=== PATIENT | female | born 1970 | race Caucasian/White ===

== ENCOUNTER → 2016-06-21 | Outpatient (CLI) | payer OTHER ==
[~2016-06-21] MED LIST: ACETAMINOPHEN650 M1 PO; ALBUTEROL17 GM INH; ALESSE-281 TAB PO; ATENOLOL PO; B-121000 MC1 PO; CLARITIN10 M3 DOB; DOXYCYCLINE HY100 M1 PO; DULERA 100 MCG/13 GM INH; ESGIC CAPSULE1 CAP PO; FIORICET 50-321 EACH PO; MONTELUKAST SOD10 MG PO; MUCINEX DM1 TAB.SR . PO; PHENERGAN PO; PHENERGAN W/CO120 ML PO; PROTONIX PO; RANITIDINE HCL150 M1 PO; RELPAX40 MG PO; SEROQUEL PO; SERTRALINE HCL50 MG PO; TOPAMAX25 MG PO; TYLOX 5/500 CAP1 CAP PO; VITAMIN D350000 UNIT PO; ZITHROMAX PO
--- NOTE | ~2016-06-21 | CT4 ---
[facility] A Service of [facility] RADIOLOGY TEXT RESULTS PATIENT: ELIAS GUTIERREZ [facility] 66 UNIT #: [id number] AGE: [address]: LUDIVINA Villatoro APRN SEX: F ORDER DR: [id number] [place], [place] [address] [id number] MR#: [id number] Acc #: [id number] NAME: ELIAS GUTIERREZ : 1970 SEX: F STUDY DATE/TIME: 06/21/2016 10:00 UNIT: [facility] ROOM: STUDY DESCRIPTION: CT Abd and Pelv Wo Cont Attending Physician: Ludivina Grayson Aprn Referring Physician: Ludivina Grayson Aprn Ordering Physician: Ludivina Grayson Aprn Primary Care Physician: Ludivina Grayson Aprn MEDICAL IMAGING REPORT This report is preliminary unless electronic signature is present EXAM CT abdomen and pelvis INDICATION Dysuria. Microscopic hematuria. Frequent urination at night. Nausea. Epigastric abdominal pain. TECHNIQUE CT abdomen and pelvis without contrast. Coronal and sagittal reconstructions were obtained. This CT exam was performed with one or more of the following radiation dose reduction techniques: automatic exposure control, adjustment of mA and/or kV according to patient size, and iterative reconstruction. COMPARISON None available. FINDINGS ABDOMEN: No urinary calculi are identified. No hydronephrosis. There is background hepatic steatosis. Gallbladder is not distended. The pancreas, spleen and adrenal glands are within normal limits. The bowel is not dilated. The abdominal aorta is normal in caliber. PELVIS: There is an IUD in the uterus. Ovaries are unremarkable. Bladder is decompressed. No enlarged pelvic or inguinal lymph nodes. IMPRESSION [facility] A Service of [facility] RADIOLOGY TEXT RESULTS PATIENT: ELIAS GUTIERREZ LOCATION: [facility] : 66 UNIT #: [id number] AGE: [address]: Ludwig-STACEY, LUDIVINA C., RESIDENTIAL SUPERVISOR SEX: F ORDER DR: 1. No urinary calculi. No hydronephrosis. 2. Hepatic steatosis. Dictated by... Kenny Jarvis M.D. THIS IS AN ELECTRONICALLY VERIFIED REPORT Kenny Jarvis M.D. at 06/21/2016 3:12 PM Jose G TD: 06/21/2016 10:49 JOB #: [id number] MEDICAL IMAGING REPORT Page 1 of 1 COPY
== END | disposition home or self-care (01) ==
LOC: CCAT 09:27
DX: R30.0 Dysuria (principal); K76.0 Fatty (change of) liver, not elsewhere classified
CPT/HCPCS: 74176

== ENCOUNTER 2016-09-19 12:28 | Observation (INO) | payer OTHER ==
--- NOTE | ~2016-09-19 | US84 ---
[id number] [facility] [address]. [place], [place] [address] [id number] MR#: [id number] Acc #: [id number] NAME: ELIAS GUTIERREZ : 1970 SEX: F STUDY DATE/TIME: 09/19/2016 16:38 UNIT: C3A PCU ROOM: 302 STUDY DESCRIPTION: US LE Veins Complete Taj Stdy Attending Physician: Cady Malhotra M.D. Ordering Physician: Cady Malhotra M.D. Primary Care Physician: Sanam Mathew Aprn MEDICAL IMAGING REPORT This report is preliminary unless electronic signature is present EXAM Lower extremity ultrasound for DVT bilateral, 09/19/2016 INDICATIONS Lower extremity pain for a week. TECHNIQUE Chan-scale, color Doppler and spectral analysis of both lower extremities was performed. COMPARISON STUDIES No comparisons. FINDINGS There is no evidence of DVT in either lower extremity. IMPRESSION 1. Negative study. No DVT in either lower extremity. Dictated by... Johnie Alejandro M.D. THIS IS AN ELECTRONICALLY VERIFIED REPORT Johnie Alejandro M.D. at 09/19/2016 11:38 PM CLARISA/ulysses TD: 09/19/2016 20:48 JOB #: [id number] MEDICAL IMAGING REPORT Page 1 of 1 COPY
--- NOTE | ~2016-09-19 | HP ---
Unit #: [id number] #: [id number] Patient: ELIAS GUTIERREZ [id number] [place], [place] [address] [id number] I MR#: [id number] NAME: ELIAS GUTIERREZ ROOM: 302 Age: 46 Sex: F Admission Date: 09/19/2016 : 1970 Attending Physician: Cady Malhotra M.D. Primary Care Physician: Sanam Mathew Aprn HISTORY AND PHYSICAL CHIEF COMPLAINT Chest pain. HISTORY OF PRESENT ILLNESS The patient is a 46-year-old female with past medical history of migraine headaches, depression, who presented to [facility] for evaluation of the above. The patient states that she was in her usual state of health until yesterday afternoon when she was driving. She states that she experienced the sudden onset of chest pain. She states that it was in the mid chest. It radiated to her arm. She described it as "heavy." There were no exacerbating or alleviating factors. She denies any similar pain. She denied diaphoresis. She also started having diarrhea yesterday. She reports more than 10 bouts of nonbloody diarrhea within the past 24 hours. She has an occasional cough. She denies any fever. She also reports a two-week history of intermittent leg cramps. In the emergency department at [facility] initial respiratory rate was 22, blood pressure 157/99, oxygen saturation was 100% on room air. D-dimer was elevated. A CT of the chest PE protocol was done and showed left lower lobe pulmonary embolism. She was started on heparin drip and sent to [facility] for admission. PAST MEDICAL HISTORY 1. The patient denies any hospitalizations. 2. Depression. 3. Migraine headache. PAST SURGICAL HISTORY 1. Skin excision of scalp lesion. The patient thinks it was benign. 2. Appendectomy. SOCIAL HISTORY The patient lives with her . There is no tobacco, alcohol or illicit drug use. She is disabled due to migraine headaches and depression. FAMILY HISTORY There is no family history of blood clots. ALLERGIES Unit #: [id number] #: [id number] Patient: ELIAS GUTIERREZ No known allergies. HOME MEDICATIONS Compazine 10 mg t.i.d. p.r.n. REVIEW OF SYSTEMS A complete review of systems is negative except as indicated in the HPI. The patient states that she is somewhat sedentary. She denies any recent travel. She did have two miscarriages. She has an IUD for control. DIAGNOSTIC STUDIES CARDIOVASCULAR: EKG shows normal sinus rhythm with a rate of 75 beats per minute. IMAGING: Chest x-ray shows nothing acute. CT of the chest PE protocol shows left lower lobe pulmonary embolism. LABORATORY: Complete blood count is completely normal. Comprehensive metabolic panel notable for a glucose of 133, total protein is 8.2, AST and ALT are 37 and 45 respectively. D-dimer 275, INR is 1.03. I was told that initial cardiac enzymes were negative but I am not seeing that in the accompanying records. PHYSICAL EXAMINATION VITAL SIGNS: Temperature is 98.4. Pulse 76. Respirations 22. Blood pressure 157/90. Oxygen saturation 100% on room air. GENERAL: The patient is a female who is awake and alert, in no acute distress. HEENT: The head is atraumatic. Mucous membranes are moist. NECK: Neck is supple. Trachea is midline. CARDIOVASCULAR: Regular rate and rhythm. LUNGS: Lungs are clear to auscultation bilaterally with no increased work of breathing. ABDOMEN: Abdomen is soft, nontender, with bowel sounds present in all four quadrants. EXTREMITIES: Nontender with no pedal edema. NEUROLOGIC: The patient is awake and alert. She follows commands. PSYCHIATRIC: Mood and affect are normal. The patient is cooperative. SKIN: Skin of examined areas is warm and dry. ASSESSMENT The patient is a 46-year-old female with: 1. Pulmonary embolism. The patient was started on heparin drip. She does have risk factor of obesity. 2. Diarrhea that started yesterday. 3. Leg pain. 4. History of migraine headaches. 5. Depression. 6. Obesity. PLAN 1. Admit to intermediate level. 2. Healthy heart diet. 3. Heparin drip, high intensity per protocol. 4. Bilateral lower extremity venous Dopplers. 5. Consult Dr. Green regarding PE. 6. Serial cardiac enzymes. Unit #: [id number] #: [id number] Patient: ELIAS GUTIERREZ 7. Fasting lipid panel. 8. Repeat labs in the morning. 9. Additional workup and consultants based on above. AW/am JOB #: [id number] Dictated by Jayesh Schumacher TD: 09/19/2016 15:32 JOB #: [id number] HISTORY AND PHYSICAL Page 1 of 1 X Cady Malhotra MD HISTORY AND PHYSICAL
--- NOTE | ~2016-09-19 | CO ---
Unit #: [id number] #: [id number] Patient: SUNSHINE DUCKWORTH [id number] [facility]. [place], [place] [address] [id number] I MR#: [id number] NAME: SUNSHINE DUCKWORTH ROOM: 302 Age: 46 Sex: F Admission Date: 09/19/2016 : 1970 Attending Physician: Julee Bah M.D. Primary Care Physician: Sanam Mathew, Faina Consultation Date: 09/20/2016 CONSULTATION REPORT REASON FOR CONSULTATION Acute pulmonary embolism, please evaluate. HISTORY OF PRESENT ILLNESS Ms. Sunshine Duckworth is a 46-year-old with history of recurrent migraine headaches and depression, who presented to the emergency room at [facility] with watery diarrhea along with chest pain. She had a CT angio of the chest, which was thought to show acute pulmonary embolism and she has been transferred for further evaluation. Ms. Duckworth tells me she has had no prior history of having blood clots with no recent long distance travel or surgery. D-dimer done in the emergency room was 274, marginally positive. She has had Doppler studies of both lower extremities, which did not show any deep venous thrombosis. A CTA of the chest shows 10 to 15 mm opacity in the left lower lobe pulmonary artery. PAST MEDICAL HISTORY History of recurrent migraine headaches, depression, and chest pain, which may be partly from stress. PAST SURGICAL HISTORY Includes skin excision of scalp lesion, appendectomy. SOCIAL HISTORY Never smoker. Does not drink any alcohol. and lives with her . FAMILY HISTORY Negative for blood clots. ALLERGIES She has no known medication allergies. HOME MEDICATIONS Compazine, Imitrex, and topiramate. REVIEW OF SYSTEMS Fourteen point review of systems taken. CONSTITUTIONAL: No recent urine output, weight. EYES: Negative. EARS, NOSE, MOUTH, AND THROAT: Negative. CARDIOVASCULAR: Chest pain as discussed. She thinks it is partly related to stress. It may also be related to heartburn, which she takes ranitidine. RESPIRATORY: History of bronchial asthma. Unit #: [id number] #: [id number] Patient: SUNSHINE DUCKWORTH GASTROINTESTINAL: Negative. GENITOURINARY: Negative. NEUROLOGIC: Recurrent headaches. ALLERGIC/LYMPHATIC: Negative. SKIN: Negative. PHYSICAL EXAMINATION GENERAL: She is a pleasant middle-aged woman, awake, alert, oriented x3. VITAL SIGNS: Temperature 99.2, pulse 66, respiratory rate is 18, blood pressure 115/78, O2 saturations 100% on room air. HEENT: Shows pupils are equal and reactive well to light. Pupils are equal. No pallor or icterus. Mucous membranes are moist. NECK: Without adenopathy, JVD, or thyromegaly. CARDIOVASCULAR: First and second heart sounds are regular. No murmurs, gallops, or rubs. LUNGS: Chest expansion is symmetric. Bilateral equal air entry with normal breath sounds. ABDOMEN: Soft, nontender. Bowel sounds are active. No organomegaly. EXTREMITIES: Warm with good pulses. No edema, cyanosis, or clubbing. NEUROLOGIC: She is awake, alert, and oriented x3 without any focal findings. SKIN: Negative. LYMPHATIC: Negative. PSYCHIATRIC: Normal affect. DIAGNOSTIC STUDIES LABORATORY RESULTS: White count 7.4, hemoglobin 12.7, platelet count is 253,000. PT 11.2, PTT is 80 seconds. Complete metabolic panel shows a BUN of 10, creatinine is 0.8. LFTs are normal. ASSESSMENT AND PLAN Ms. Sunshine Duckworth is a 46-year-old transferred from emergency room at [facility] with chest pain and has a history of diarrhea. Her D-dimer is borderline high at 274, which is quite low for acute pulmonary embolism. Her Doppler of the lower extremities was negative and I discussed the situation and reviewed the angiogram with Dr. Baldev Thibodeaux of Radiology. It is very possible that the abnormality seen on the CT angiogram is actually an unopacified left lower lobe pulmonary artery rather than a pulmonary embolus. We discussed that given the clinical situation and alternate explanation for the chest pain including stress and heartburn and at this point, I would discontinue anticoagulation and followup with a repeat CT angio of the chest in 3 weeks' time. At that point, based upon that we can make a determination with resumption of anticoagulation is necessary or not as the primary intention of treatment in with such low clot burden would be prevention of recurrent events. Repeat scans confirm that this was an artifact. We will plan observation alone. Plans were discussed in detail with the patient who expressed an understanding. She will return back to see me in 2-1/2 weeks to schedule a CT angio of the chest. Dictated by... Jayesh Romero/isela TD: 09/23/2016 06:08 JOB #: [id number] Unit #: [id number] #: [id number] Patient: SUNSHINE DUCKWORTH CONSULTATION REPORT Page 1 of 1 X Veto Brock MD CONSULTATION REPORT
[~2016-09-19 12:28] MED LIST changes: -ACETAMINOPHEN650 M1 PO; -ALBUTEROL17 GM INH; -B-121000 MC1 PO; -CLARITIN10 M3 DOB; -DULERA 100 MCG/13 GM INH; -MONTELUKAST SOD10 MG PO; -PROTONIX PO; -RANITIDINE HCL150 M1 PO; -SERTRALINE HCL50 MG PO; -TOPAMAX25 MG PO; -VITAMIN D350000 UNIT PO
[2016-09-19] MEDS ORDERED: VITAMIN D350000 UNIT PO (16:08)
[2016-09-19] MEDS ORDERED: ALBUTEROL17 GM INH (16:10)
[2016-09-19] MEDS ORDERED: DULERA 100 MCG/13 GM INH (16:11)
[2016-09-19] MEDS ORDERED: B-121000 MC1 PO (16:13)
[2016-09-19] MEDS ORDERED: SERTRALINE HCL50 MG PO (16:14)
[2016-09-19] MEDS ORDERED: CLARITIN10 M3 DOB (16:14)
[2016-09-19] MEDS ORDERED: RANITIDINE HCL150 M1 PO (16:15)
[2016-09-19] MEDS ORDERED: MONTELUKAST SOD10 MG PO (16:16)
[2016-09-19] MEDS ORDERED: TOPAMAX25 MG PO (16:16)
[2016-09-19 16:52] LABS: CK TOTAL 40 IU/L (26-140); LDL/HDL RATIO 4 RATIO (0-4)
[2016-09-19 17:54] LABS: CHOLESTEROL 251 mg/dL (0-200); HDL CHOLESTEROL 47 mg/dL (35-95); TRIGLYCERIDES 98 mg/dL (10-160)
[2016-09-19 17:55] LABS: LDL CHOLESTEROL 184 mg/dL (-130)
[2016-09-19 22:32] LABS: CK TOTAL 39 IU/L (26-140)
[2016-09-20 02:34] LABS: HEMATOCRIT 39.5 % (35.0-45.0); HEMOGLOBIN 12.7 gm/dL (12.0-16.0); MEAN CELL VOLUME 84.8 FL (83-96); MEAN CORPUSCULAR HEMOGLOBIN 27.3 PG (28-34); MEAN CORPUSCULAR HGB CONC 32.2 g/dL (30-36); MEAN PLATELET VOLUME 8.9 FL (6.5-11.5); RED BLOOD COUNT 4.65 X10e (3.90-5.30); RED CELL DISTRIBUTION WIDTH 13.8 % (11.0-15.5); WHITE BLOOD COUNT 7.4 X10e3 (4.0-10.5)
[2016-09-20 03:12] LABS: PROTHROMBIN TIME (PATIENT) 11.2 SECONDS (10.0-11.7)
[2016-09-20 05:14] LABS: ALBUMIN SERUM 3.6 g/dL (3.5-5.0); BILIRUBIN,TOTAL 0.7 mg/dL (0.2-2.0); BUN/CREATININE RATIO 12.5; CALCIUM SERUM 9.1 mg/dL (8.4-10.2); CREATININE SERUM 0.8 mg/dL (0.6-1.4); GLOM FILT RATE Estimated 87.3 mL/min (>60); POTASSIUM 3.8 mmol/L (3.5-5.1); PROTEIN TOTAL SERUM 6.9 g/dL (6.0-8.3)
[2016-09-20] MEDS ORDERED: ACETAMINOPHEN650 M1 PO (13:12)
[2016-09-20] MEDS ORDERED: PROTONIX PO (13:16)
== END 2016-09-20 14:08 | disposition home or self-care (01) ==
LOC: CEDOF 12:28 → C3A PCU 12:28
PROVIDERS: Family Medicine
DX: I26.99 Other pulmonary embolism without acute cor pulmonale (principal); R19.7 Diarrhea, unspecified; M79.606 Pain in leg, unspecified; F32.9 Major depressive disorder, single episode, unspecified; E66.9 Obesity, unspecified
CPT/HCPCS: 80053; 80061; 82550; 84484; 85027; 85610; 85730; 93970; 94760; 96374; 96375; 96376; G0378; J1644; J1885; J2405